=== PATIENT | male | born 1950 | race Caucasian/White ===

== ENCOUNTER 2019-04-09 05:58 | Emergency (ER) | payer OTHER, SELFPAY ==
[2019-04-09 06:05] VITALS: BP 104/90; BP 75/25; PULSE 0; PULSE 104; PULSE 120; PULSE 21; PULSE 33; RESP 0; RESP 14; RESP 16; RESP 23; RESP 26; RESP 30; O2SAT 60; O2SAT 65; O2SAT 68; O2SAT 78; O2SAT 97
[2019-04-09 06:10] VITALS: TEMP -17.7; TEMP 0; BMI 40.8
--- NOTE | 2019-04-09 06:27 | ED.VIS.GEN ---
History of Present Illness Chief Complaint: CPR Informant: Director Of Occupational Health Onset: Today Narrative: Patient presented to the emergency department in cardiac arrest. EMS reported that the patient was found by family not breathing with gurgling breath sounds. EMS stated that he underwent approximately 50 minutes of CPR and ACLS protocol prior to arrival to our emergency department. He was given 6 rounds of epinephrine and 1 round of amiodarone and 1 round of bicarbonate in route. [place] twice in route for reported ventricular fibrillation. There was never a return of spontaneous circulation per EMS. EMS did not know any significant history other than a cardiac background of some sort. Patient unable to provide history due to cardiac arrest. EMS did place an intraosseous IV that was flowing well as well as a LMA with good breath sounds per EMS. Past Medical History Primary Care Physician: Boaz BourneOut of [Primary Care Provider] - Prior records reviewed: Yes Past Medical History: - - Unknown Surgical History: - - Known Lives: - - Known Smoking Status: Unknown if ever smoked Drugs: - - Unknown Review of Systems ROS: Unable to Obtain Physical Exam General: - - Cyanotic without spontaneous breath sounds. No pulse CPR in progress Eyes: - - fixed and dilated without movement Cardiovascular: - - List Respiratory: - - Patient has an LMA placed. No spontaneous respirations. Extremities: - - Cyanotic Diagnostic/Tx/Re-eval - Medical Decision Making ACLS protocol continued. Patient placed on the monitor. CPR stopped. Pulse checked. There is no pulse. The patient is in PEA. The patient was given epinephrine. There is good breath sounds with the LMA. IV fluids were ran wide open. Patient was also given a dose of bicarbonate. Patient then went into ventricular fibrillation on repeat pulse check. He was shocked x1. The patient had a brief return of spontaneous circulation lasting approximately 20 seconds. He then lost his pulse again and ACLS protocol was continued. The patient remained in PEA afterwards. Ultrasound was done at the bedside which showed no spontaneous cardiac movement. The patient subsequently from his cardiac arrest after a total of 65+ minutes of CPR. - Critical Care Time Critical care time (excluding procedures): 30-74 minutes ED Disposition - Plan for ED Patient: Disposition: Home or Assisted Living Diagnosis: Cardiopulmonary arrest Referrals: Boaz BourneOut of [Primary Care Provider] -
== END 2019-04-09 09:39 | disposition home or self-care (01) ==
LOC: ED 07:47
PROVIDERS: Emergency Provider Emergency Medicine
DX: I46.9 Cardiac arrest, cause unspecified (principal); I49.01 Ventricular fibrillation
CPT/HCPCS: 92950; 99281; 99291; A4216